=== PATIENT | male | born 1955 | race Two or more races ===

== ENCOUNTER 2016-11-27 00:12 | Emergency (ER) | payer OTHER ==
[~2016-11-27] VITALS: Ht 175.3 cm; Wt 81.6 kg
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
[2016-11-27] MEDS ORDERED: ASPIRIN 81 MG TAB.CHEW ONE (00:26)
[2016-11-27] MEDS ORDERED: ASPIRIN 81 MG TAB.CHEW PO ONE (00:30)
--- NOTE | 2016-11-27 00:33 | NUR ---
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 pt continues to be in [employer] custody.
--- NOTE | 2016-11-27 00:36 | NUR ---
CXR at bedside.
[2016-11-27 00:45] LABS: BASOPHILS % (AUTO) 0.3 % (0.0-2.0); EOSINOPHILS # (AUTO) 0.1 /CMM (0.0-0.7); EOSINOPHILS % (AUTO) 0.8 % (0.0-6.0); HEMATOCRIT 46 % (39-51); HEMOGLOBIN 15.1 g/dL (13.5-17.5); LYMPHOCYTES # (AUTO) 2.1 /CMM (0.8-4.8); LYMPHOCYTES % (AUTO) 30.2 % (20.0-44.0); MEAN CORPUSCULAR HEMOGLOBIN 31 PG (26.0-33.0); MEAN CORPUSCULAR HGB CONC 33 g/dl (31.0-36.0); MEAN CORPUSCULAR VOLUME 93 fL (80-96); MONOCYTES # (AUTO) 0.3 /CMM (0.1-1.30); MONOCYTES % (AUTO) 4.2 % (2.0-12.0); NEUTROPHILS # (AUTO) 4.5 /CMM (1.8-8.9); NEUTROPHILS % (AUTO) 64.5 % (43.0-81.0); PLATELET COUNT (AUTO) 237 /CMM (150-450); RED BLOOD CELL COUNT(AUTO) 4.89 MIL/uL (4.5-6.0); WHITE BLOOD COUNT (AUTO) 6.9 K/uL (4.3-11.0)
[2016-11-27 00:52] LABS: CALCIUM, SERUM 9.1 mg/dL (8.5-10.1); CARBON DIOXIDE 29 mmol/L (21-32); CHLORIDE 105 mmol/L (98-107); CREATININE 1.4 mg/dL (0.6-1.3); GFR 52 mL/min (>60); GLUCOSE 127 mg/dL (74-106); POTASSIUM 4.3 mmol/L (3.5-5.1); SODIUM SERUM 142 mmol/L (136-145); UREA NITROGEN, BLOOD 14 mg/dL (7-18)
[2016-11-27 01:02] LABS: INR 1.02 (0.87-1.13)
[2016-11-27 01:03] LABS: TROPONIN I < 0.017 ng/mL (0.00-0.056)
--- NOTE | 2016-11-27 01:33 | NUR ---
Lying in bed w/ resp even & unlabored, nad noted. [employer] at bedside. Awaiting test results.
--- NOTE | 2016-11-27 01:50 | NUR ---
Dr. Preciado updated on pt status, continues to have high bp w/ resp even & unlabored, nad noted.
[2016-11-27] MEDS ORDERED: hydrALAZINE HCL IV 20 MG VIAL ONE (02:16)
--- NOTE | 2016-11-27 02:25 | NUR ---
medicated as ordered for high blood pressure, On continuous monitoring.
[2016-11-27] MEDS ORDERED: hydrALAZINE HCL IV 20 MG VIAL IV ONE (02:30)
--- NOTE | 2016-11-27 03:03 | NUR ---
pt medically cleared & OK to book by Dr. Preciado, d/c to [employer] custody in stable condition. IV removed. Catheter intact and site benign. Pressure and 4x4 applied to site. No bleeding noted.Patient discharged to home in stable condition. Written and verbal after care instructions given. Patient verbalizes understanding of instruction.
[2016-11-27 03:21] VITALS: BP 169/104
== END 2016-11-27 03:06 ==
LOC: ER 00:15
DX: R07.9 Chest pain, unspecified (principal); I10 Essential (primary) hypertension
CPT/HCPCS: 36415; 71010; 80048; 84484; 85025; 85730; 93005; 96374; 99285; A4606; J0360; Z7610

== ENCOUNTER 2023-02-10 00:44 | Emergency (ER) | payer MEDICARE, OTHER ==
[~2023-02-10] VITALS: Ht 180.3 cm; Wt 102.1 kg
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
[2023-02-10] MEDS ORDERED: HYDROCODONE/APAP 5/325MG TABLET ONE (01:21)
[2023-02-10] MEDS ORDERED: HYDROCODONE/APAP 5/325MG TABLET PO ONE (01:30)
--- NOTE | 2023-02-10 01:55 | NUR ---
XR AT BEDSIDE
--- NOTE | 2023-02-10 02:15 | NUR ---
TO CT W/ TECH
--- NOTE | 2023-02-10 02:25 | NUR ---
PT RETURNED FROM CT
[2023-02-10] MEDS ORDERED: IBUP-1957 PO (05:04)
[2023-02-10 05:11] VITALS: BP 145/85
--- NOTE | 2023-02-10 05:11 | NUR ---
Patient discharged to home in stable condition. RX Written and verbal after care instructions given. Patient verbalizes understanding of instruction.
== END 2023-02-10 05:12 | disposition home or self-care (01) ==
LOC: ER 00:48
DX: S39.012A Strain of muscle, fascia and tendon of lower back, initial encounter (principal); S60.221A Contusion of right hand, initial encounter; S50.01XA Contusion of right elbow, initial encounter; S70.11XA Contusion of right thigh, initial encounter; S09.90XA Unspecified injury of head, initial encounter; I10 Essential (primary) hypertension; Z88.8 Allergy status to other drugs, medicaments and biological substances; Z60.2 Problems related to living alone; V29.99XA Rider (driver) (passenger) of other motorcycle injured in unspecified traffic accident, initial encounter; Y93.89 Activity, other specified; Y92.89 Other specified places as the place of occurrence of the external cause; Y99.8 Other external cause status
CPT/HCPCS: 99284; 70450; 72110; 73080; 73552; 73130; A6403